=== PATIENT | female | born 1960 | race Caucasian/White ===

== ENCOUNTER 2021-04-19 16:50 | Emergency (ER) | payer OTHER ==
[2021-04-19] MEDS ORDERED: Ondansetron 4 MG/2 ML SDV IVPUSH ONE (17:36)
[2021-04-19] MEDS ORDERED: Sodium Chloride 0.9% 1,000 ML IV SCH (17:45)
--- NOTE | 2021-04-19 18:11 | EDM.PDOC ---
ED HPI GENERAL MEDICAL PROBLEM - General Chief Complaint: Gastrointestinal Problem Stated Complaint: DIARRHEA, VOMITING Time Seen by Provider: 04/19/21 17:15 Source of Information: Reports: Patient History Limitations: Reports: No Limitations - History of Present Illness INITIAL COMMENTS - FREE TEXT/NARRATIVE: 60-year-old female with chronic diarrhea problems, presents with increased diarrhea for the past week, with nausea and vomiting that developed today. No fevers or chills, no blood in the diarrhea or emesis. The chronic diarrhea is a recurring problem but the nausea and vomiting is new. She actually felt fairly good yesterday. No back pain, no urinary symptoms, no cough or shortness of breath but she would like to be checked for Covid. She is fully vaccinated. She has not recently been on antibiotic or done any significant traveling. Mild abdominal cramping but it goes away after her emesis. She is not actively vomiting here in the emergency room. Onset: Unknown/Unsure Duration: Waxing/Waning (Diarrhea is waxing and waning, and emesis is fairly recent, just today) Location: Reports: Abdomen (Mild abdominal cramping) Associated Symptoms: Reports: Malaise, Nausea/Vomiting. Denies: Confusion, Chest Pain, Cough, Shortness of Breath - Related Data Allergies Allergy/AdvReac Type Severity Reaction Status Date / Time No Known Allergies Allergy Verified 04/19/21 17:15 Home Meds: Home Meds Dulaglutide [Trulicity] 0.75 mg SQ ASDIRECTED 04/19/21 [History] atorvaSTATin Calcium [Atorvastatin Calcium] 20 mg PO DAILY 04/19/21 [History] traZODone 100 mg PO BEDTIME 04/19/21 [History] Past Medical History Respiratory History: Reports: Sleep Apnea Endocrine/Metabolic History: Reports: Diabetes, Type II - Infectious Disease History Infectious Disease History: Reports: Chicken Pox - Past Surgical History Musculoskeletal Surgical History: Reports: Hip Replacement Social & Family History - Tobacco Use Tobacco Use Status *Q: Never Tobacco User - Caffeine Use Caffeine Use: Reports: Soda - Recreational Drug Use Recreational Drug Use: No ED ROS GENERAL - Review of Systems Review Of Systems: See Below Constitutional: Reports: Malaise, Decreased Appetite. Denies: Fever, Chills HEENT: Reports: No Symptoms Respiratory: Denies: Shortness of Breath Cardiovascular: Denies: Chest Pain GI/Abdominal: Reports: Abdominal Pain, Diarrhea, Decreased Appetite, Nausea, Vomiting. Denies: Hematemesis, Hematochezia, Melena : Reports: No Symptoms Skin: Reports: No Symptoms Neurological: Reports: No Symptoms ED EXAM, GI/ABD - Physical Exam Exam: See Below Exam Limited By: No Limitations General Appearance: Alert, No Apparent Distress Eyes: Bilateral: Normal Appearance (No jaundice, good hydration) Head: Atraumatic Respiratory/Chest: No Respiratory Distress, Lungs Clear Cardiovascular: Regular Rate, Rhythm. No: Tachycardia GI/Abdominal Exam: Normal Bowel Sounds, Soft, Non-Tender Extremities: No: Pedal Edema Neurological: Alert, Oriented, No Motor/Sensory Deficits Psychiatric: Normal Affect, Normal Mood Skin Exam: Warm, Dry Course - Vital Signs Last Recorded V/S: Last Vital Signs Temp 97.3 F 04/19/21 17:11 Pulse 99 04/19/21 19:05 Resp 16 04/19/21 17:11 BP 153/91 H 04/19/21 19:05 Pulse Ox 94 L 04/19/21 17:11 - Orders/Labs/Meds Labs: Laboratory Tests 04/19/21 04/19/21 04/19/21 Range/Units 17:55 17:55 17:58 WBC 8.3 (4.5-11.0) K/uL RBC 4.66 (3.30-5.50) M/uL Hgb 13.9 (12.0-15.0) g/dL Hct 41.5 (36.0-48.0) % MCV 89 (80-98) fL MCH 30 (27-31) pg MCHC 34 (32-36) % Plt Count 205 (150-400) K/uL Neut % (Auto) 61.9 (36-66) % Lymph % (Auto) 19.3 L (24-44) % [place] % (Auto) 12.1 H (2-6) % Eos % (Auto) 6.2 H (2-4) % Baso % (Auto) 0.5 (0-1) % Sodium 140 (140-148) mmol/L Potassium 4.1 (3.6-5.2) mmol/L Chloride 102 (100-108) mmol/L Carbon Dioxide 29 (21-32) mmol/L Anion Gap 8.7 (5.0-14.0) mmol/L BUN 16 (7-18) mg/dL Creatinine 1.0 (0.6-1.0) mg/dL Est Cr Clr Drug Dosing 52.31 mL/min Estimated GFR (MDRD) 57 L (>60) Glucose 147 H (74-106) mg/dL Calcium 9.2 (8.5-10.1) mg/dL Total Bilirubin 0.5 (0.2-1.0) mg/dL AST 14 L (15-37) U/L ALT 33 (12-78) U/L Alkaline Phosphatase 92 (46-116) U/L Total Protein 6.8 (6.4-8.2) g/dL Albumin 3.6 (3.4-5.0) g/dL Globulin 3.2 (2.3-3.5) g/dL Albumin/Globulin Ratio 1.1 L (1.2-2.2) SARS-CoV-2 RNA (ISIDRA) Negative (NEGATIVE) Meds: Medications Discontinued Medications Generic Name Dose Route Start Last Admin Trade Name Freq PRN Reason Stop Dose Admin Sodium Chloride 1,000 mls @ 1,000 mls/hr 04/19/21 17:45 04/19/21 17:58 Normal Saline IV 1,000 mls/hr ASDIRECTED MELANIA Administration Ondansetron HCl 4 mg 04/19/21 17:36 04/19/21 17:58 Ondansetron 4 Mg/2 Ml Sdv IVPUSH 04/19/21 17:37 4 mg ONETIME ONE Administration - Re-Assessments/Exams Free Text/Narrative Re-Assessment/Exam: 04/19/21 18:10 An IV was started, patient was given 1 L of fluid, 4 mg of IV Zofran and a CBC CMP and Covid were collected. If she supplies us with a stool sample, this will be checked for WBCs. 04/19/21 18:52 1 hour in the emergency room, the patient did not have another stool to be zan pled. The IV fluids and Zofran helped, her CBC and CMP were basically normal. Covid was negative. She will be diagnosed with viral gastroenteritis and discharged with 5 additional doses of Zofran and can advance diet as tolerated. Departure - Departure Time of Disposition: 19:06 Disposition: Home, Self-Care 01 Clinical Impression: Gastroenteritis Nausea and vomiting Qualifiers: Vomiting type: unspecified Vomiting Intractability: non-intractable Qualified Code(s): R11.2 - Nausea with vomiting, unspecified - Discharge Information Instructions: Viral Gastroenteritis, Adult, [id number] Referrals: GHAZALA MOORE MD [Other] Forms: ED Department Discharge Care Plan Goals: Stay hydrated with fluids, advance diet and activity as tolerated and use Zofran as directed for any persistent nausea or vomiting. Return anytime if worsening, or consider rechecking in 2 to 3 days if not improving satisfactorily. Sepsis Event Note (ED) - Evaluation Sepsis Screening Result: No Definite Risk
== END 2021-04-19 19:06 | disposition home or self-care (01) ==
LOC: JP.ED 16:50
DX: K52.9 Noninfective gastroenteritis and colitis, unspecified (principal); R11.2 Nausea with vomiting, unspecified; E11.9 Type 2 diabetes mellitus without complications; Z20.822 Contact with and (suspected) exposure to COVID-19
CPT/HCPCS: 36415; 80053; 85025; 87635; 96374; 99284; J2405; J7030; U0002